=== PATIENT | male | born 2000 | race Caucasian/White ===

== ENCOUNTER 2023-04-18 16:49 | Emergency (ER) | payer OTHER ==
[~2023-04-18] VITALS: Ht 172.7 cm; Wt 73.9 kg
[2023-04-18] MEDS ORDERED: PROPRANOLOL HCL40 MG PO (17:43)
[2023-04-18] MEDS ORDERED: OMEPRAZOLE40 MG PO (17:44)
[2023-04-18] MEDS ORDERED: CIPROFLOXACIN H10 ML OPH (18:10)
== END 2023-04-18 18:17 | disposition home or self-care (01) ==
LOC: ED 16:49
DX: S05.02XA Injury of conjunctiva and corneal abrasion without foreign body, left eye, initial encounter (principal); W51.XXXA Accidental striking against or bumped into by another person, initial encounter; Y93.68 Activity, volleyball (beach) (court); Y92.39 Other specified sports and athletic area as the place of occurrence of the external cause; Y99.8 Other external cause status